=== PATIENT | male | born 2000 | race Caucasian/White ===

== ENCOUNTER 2020-06-01 04:57 | Emergency (ER) | payer BC, SELFPAY ==
[2020-06-01] VITALS (26 sets, daily range): BP systolic 124–151; BP diastolic 64–113; PULSE 59–80; RESP 13–22; TEMP 36.6; O2SAT 95–100
--- NOTE | ~2020-06-01 | XR_ITS ---
XR chest 2V DATE: 06/01/2020 05:47 INDICATION: Left-sided chest pain, shortness of breath TECHNIQUE: PA and lateral views COMPARISON: None FINDINGS: Normal heart size. No hilar or mediastinal enlargement. No pulmonary infiltrate or consolid ation, pleural effusion or pulmonary vascular congestion or pneumothorax. Included skeletal structures appear normal. IMPRESSION: Negative Reviewed, dictated and finalized at location A. IMPRESSION: Negative
--- NOTE | 2020-06-01 05:05 | ECG_ITS ---
Measurements Intervals [place] Rate: 59 P: 43 NC: 168 QRS: 24 QRSD: 102 T: 20 QT: 371 QTc: 368 Interpretive Statements SINUS BRADYCARDIA BORDERLINE ECG Electronically Signed On 06-01-2020 7:23:28 CDT by Daniel Lloyd D.O.
[2020-06-01 05:42] LABS: Basophils Absolute Auto 0.1 K/mm3 (0.0-0.1); Basophils Percent Auto 0.8 % (0.2-1.2); Eosinophils Absolute Auto 0.1 K/mm3 (0-0.3); Eosinophils Percent Auto 1.2 % (0-4.4); Hematocrit 45.1 % (42.0-52.0); Hemoglobin 15.3 g/dL (14.0-18.0); Immature Granulocyte Absolute 0.03 K/mm3 (0.00-0.031); Immature Granulocyte Percent A 0.4 % (0-0.5); Lymphocytes Absolute Auto 2.11 K/mm3 (0.9-3.2); Lymphocytes Percent Auto 25.2 % (18.3-44.2); Mean Corpuscular HGB Conc 33.9 g/dl (32-36); Mean Corpuscular Volume 88.4 fl (80-100); Monocytes Absolute Auto 0.7 K/mm3 (0.1-0.6); Neutrophils Absolute Auto 5.4 K/mm3 (1.3-6.7); Neutrophils Percent Auto 64.4 % (45.5-73.1); Platelet Count Result 298 k/mm3 (150-375); Red Cell Distribution Width 12.4 % (11.5-14.5); White Blood Count 8.4 K/mm3 (4.5-10.0)
[2020-06-01 05:48] LABS: Prothrombin Time 13.9 Seconds (11.1-14.7)
[2020-06-01 05:49] LABS: Partial Thromboplastin Time 31.9 SECONDS (22.3-36.8)
[2020-06-01 05:53] LABS: Anion Gap 9 mmol/L (8-16); Blood Urea Nitrogen 11 mg/dL (9-20); Calcium 9.6 mg/dL (8.4-10.2); Carbon Dioxide 29 mmol/L (22-30); Chloride 101 mmol/L (98-107); Estimated CRCL calculation 109 ml/min; Estimated Glomerular Filt Rate > 60; Glucose 93 mg/dL (75-110); Potassium 4.2 mmol/L (3.4-5.0); Sodium 139 mmol/L (137-145)
--- NOTE | 2020-06-01 05:54 | ED.CHESTPAIN ---
HPI - Chest Pain General Chief Complaint: Chest Pain <Susy Chakraborty MD - Last Filed: 06/01/20 07:38> Stated Complaint: Chest tight-left arm pain SOB <Susy Chakraborty MD - Last Filed: 06/01/20 07:38> Time Seen by Provider: 06/01/20 05:12 <Susy Chakraborty MD - Last Filed: 06/01/20 07:38> Source: patient <Susy Chakraborty MD - Last Filed: 06/01/20 07:38> Mode of arrival: ambulatory <Susy Chakraborty MD - Last Filed: 06/01/20 07:38> Limitations: no limitations <Susy Chakraborty MD - Last Filed: 06/01/20 07:38> History of Present Illness HPI narrative: This is 19 year old male who presents for evaluation of left chest tightness that started 4 hours ago. He states he was sitting at work when he develop tightness to his left chest and left arm. His pain is worse with movement of his arm. He also reports sob. He took ibuprofen at onset of his pain but he states his pain is unchanged. He rates his pain 8/10. He denies leg swelling, calf pain or history of DVT. He denies abdominal pain. He states he had an episode of nausea and vomiting last night but he thinks that was due to him drinking water too fast . He also states his vomiting was hours before he developed the chest pain. <Susy Chakraborty MD - Last Filed: 06/01/20 07:38> Related Data Home Medications: Home Medications Medication Instructions Recorded Confirmed No Home Medications 06/01/20 06/01/20 <Susy Chakraborty MD - Last Filed: 06/01/20 07:38> Allergies/Adverse Reactions: Allergies Allergy/AdvReac Type Severity Reaction Status Date / Time cefazolin Allergy Rash Verified 06/01/20 05:01 <Susy Chakraborty MD - Last Filed: 06/01/20 07:38> Review of Systems Review of Systems: All systems reviewed & are unremarkable except as noted in HPI and below <Susy Chakraborty MD - Last Filed: 06/01/20 07:38> [facility] Past Medical History Medical History: Medical History (Updated 06/01/20 @ 09:58 by Charlette Davila MD) Patient denies medical problems <Susy Chakraborty MD - Last Filed: 06/01/20 07:38> Surgical History Surgical History: Surgical History (Updated 06/01/20 @ 05:57 by Susy Chakraborty MD) No pertinent past surgical history <Susy Chakraborty MD - Last Filed: 06/01/20 07:38> Social History Social History: Social History (Updated 06/01/20 @ 05:57 by Susy Chakraborty MD) Smoking status: Never smoker <Susy Chakraborty MD - Last Filed: 06/01/20 07:38> Exam Const: General: no acute distress and alert <Susy Chakraborty MD - Last Filed: 06/01/20 07:38> Orientation/consciousness: patient oriented x3 <Susy Chakraborty MD - Last Filed: 06/01/20 07:38> Eyes: EOM: EOMs intact bilaterally <Susy Chakraborty MD - Last Filed: 06/01/20 07:38> Chest: Other: reproducible left chest tenderness <Susy Chakraborty MD - Last Filed: 06/01/20 07:38> Resp: Effort & Inspection: normal respiratory effort and no retractions <Susy Chakraborty MD - Last Filed: 06/01/20 07:38> Auscultation: clear to auscultation bilaterally <Susy Chakraborty MD - Last Filed: 06/01/20 07:38> Cardio: Rate: regular rate <Susy Chakraborty MD - Last Filed: 06/01/20 07:38> Rhythm: regular rhythm <Susy Chakraborty MD - Last Filed: 06/01/20 07:38> Heart sounds: no murmurs <Susy Chakraborty MD - Last Filed: 06/01/20 07:38> GI: GI Palp: Yes Soft to palpation, No Tenderness to palpation present (GI) and No Guarding due to palpation present (GI) <Susy Chakraborty MD - Last Filed: 06/01/20 07:38> Auscultation: normal bowel sounds <Susy Chakraborty MD - Last Filed: 06/01/20 07:38> Skin: General skin exam: normal color <Susy Chakraborty MD - Last Filed: 06/01/20 07:38> Rashes: no rashes <Susy Chakraborty MD - Last Filed: 06/01/20 07:38> Neuro: General: patient oriented x3, moves all extremities and CN's II-XI intact bilaterally <Susy Chakraborty MD - Last Filed:
[2020-06-01] MEDS: NITROGLYCERIN SL 0.4 MG TABLET SUBLINGUAL (06:04)
[2020-06-01] MEDS: ASPIRIN 81 MG CHEWABLE TABLET 324 MG PO (06:04)
[2020-06-01 06:05] LABS: Troponin I < 0.012 ng/mL (0.000-0.034)
[2020-06-01 06:31] LABS: D Dimer 0.27 ug/mL (<0.48)
--- NOTE | 2020-06-01 06:35 | PC.NURSE ---
2nd nitro given sl as ordered
--- NOTE | 2020-06-01 06:44 | PC.NURSE ---
3rd nitro given sl as ordered. pt reports cp 05/22.
--- NOTE | 2020-06-01 07:16 | PC.NURSE ---
Pt reports feels much better at present. Made aware of pending troponin level.
--- NOTE | 2020-06-01 08:43 | PC.NURSE ---
3 hr troponin being drawn. Updated on disposition.
[2020-06-01 09:23] LABS: Troponin I < 0.012 ng/mL (0.000-0.034)
== END 2020-06-01 10:20 | disposition home or self-care (01) ==
PROVIDERS: General Practice; Emergency Provider Emergency Medicine
DX: R07.89 Other chest pain (principal); R00.1 Bradycardia, unspecified
CPT/HCPCS: 36415; 71046; 80048; 84484; 85025; 85380; 85610; 85730; 93005; 99284; A9270